=== PATIENT | female | born 1940 | race African-American/Black ===

== ENCOUNTER 2017-09-07 10:19 | Outpatient (CLI) | payer MEDICARE, MEDICAID ==
[2016-01-27 12:55] VITALS: BP 138/75
== END 2017-09-07 10:20 ==
LOC: LABRHC 10:19
PROVIDERS: ATTEND Physician Assistant
DX: R30.0 Dysuria (principal)
CPT/HCPCS: 87086; 87186

== ENCOUNTER 2018-07-01 22:29 | Emergency (ER) | payer MEDICARE, OTHER ==
[2018-07-01] MEDS ORDERED: diphenhydrAMINE HCL 50 MG/ML VIAL IVP ONE (22:45)
[2018-07-01] MEDS ORDERED: methylPREDNISolone SOD SUCC 125 MG/2 ML VIAL IVP ONE (22:45)
[2018-07-01] MEDS ORDERED: diphenhydrAMINE HCL 50 MG/ML VIAL ONE (22:47)
[2018-07-01] MEDS ORDERED: methylPREDNISolone SOD SUCC 125 MG/2 ML VIAL ONE (22:47)
[2018-07-01 22:57] LABS: BASOPHILS % 0.3 (0.0-1.5); EOSINOPHILS % 6.3 % (0.0-6.8); MEAN CORPUSCULAR HEMOGLOBIN 29.2 pg (28.0-34.0); MONOCYTES % 5.1 % (0.0-11.0); NEUTROPHILS # 3.4 # k/uL (1.4-7.7)
--- NOTE | 2018-07-01 23:01 | ED Physician Documentation ---
General Adult - HISTORIAN Historian: patient - HPI Stated Complaint: "Allergic Rxn" Chief Complaint: General Adult Onset: minutes Timing: still present Severity: moderate Further Comments: yes (Pt is a 77 yo female with sudden onset R-sided neck swelling, which she attributes to an allergic reaction. Pt had eaten some chicken salad just before the neck swelling occurred. Pt has had allergic reactions in the past but not to chicken salad, all of whose ingredients she has eaten in the past. Pt has not had difficulty swallowing or difficulty breathing apart from her usual COPD. Pt had been on continous O2 at one time, but improved and was able to discontinue it. Pt is wheezy on presentation, but not in any significant respiratory distress. Pt is on plavix.) - ROS CONST: no problems EYES/ENT: other (R-sided neck swelling) CVS/RESP: shortness of breath (chronic with COPD) GI/: none MS/SKIN/LYMPH: other (R-sided neck swelling) NEURO/PSYCH: headache - PAST HX Past History: other (HTN, PVD, Asthma/COPD, Anemia NOS, Anxiety, Chronic Low Back Pain, Sinusitis.) Surgeries/Procedures: other (L Total Hip Repacement 2004) Allergies/Adverse Reactions: Allergies Allergy/AdvReac Type Severity Reaction Status Date / Time promethazine HCl Allergy Unknown Verified 07/01/18 22:32 [From Phenergan] SEAN Inhibitors Allergy Verified 07/01/18 22:32 amlodipine besylate Allergy Verified 07/01/18 22:32 [From Norvasc] benazepril HCl [From Lotrel] Allergy Verified 07/01/18 22:32 fluticasone propionate Allergy Verified 07/01/18 22:32 [From Advair Diskus] metformin Allergy Verified 07/01/18 22:32 nifedipine [Nifedipine] Allergy Verified 07/01/18 22:32 NSAIDS (Non-Steroidal Allergy Verified 07/01/18 22:32 Anti-Inflamma Quinolones Allergy Unverified 07/01/18 22:32 salmeterol xinafoate Allergy Verified 07/01/18 22:32 [From Advair Diskus] Shellfish Allergy Verified 07/01/18 22:32 Sulfa (Sulfonamide Allergy Verified 07/01/18 22:32 Antibiotics) [Sulfa(Sulfonamide Antibiotics)] tramadol Allergy Verified 07/01/18 22:32 Home Medications: Ambulatory Orders Medication Instructions Recorded Albuterol Sulfate [Albuterol 2 puff INH QID PRN 03/11/13 Sulfate Hfa] Oxycodone HCl/Acetaminophen 1 tab PO Q6H PRN 03/11/13 [Endocet 5-325 Tablet] Clopidogrel Bisulfate [Clopidogrel] 75 mg PO DAILY 07/01/18 Hydrochlorothiazide 25 mg PO DAILY 07/01/18 Pnv No.95/Ferrous Fum/Folic AC 1 tab PO DAILY 07/01/18 [ Vitamins Tablet] Topiramate [Topamax] 50 mg PO BID 07/01/18 - SOCIAL HX Smoking History: quit greater than 1 year - FAMILY HX Family History: Yes (Colon Cancer) - VITAL SIGNS Vital Signs: Vital Signs Temp Pulse Resp BP Pulse Ox 97.1 F L 95 H 24 169/88 96 07/01/18 22:30 07/01/18 22:30 07/01/18 22:30 07/01/18 22:30 07/01/18 22:30 - REVIEWED ASSESSMENTS Nursing Assessment Reviewed: Yes Vitals Reviewed: Yes Progress - Progress Progress: CT soft Tissues Neck: No intracranial abnormality is seen. The orbits are unremarkable. The nasopharynx and oropharynx and hypopharynx are normal. The left parotid gland is normal. The right is enlarged and surrounded by inflammatory change. There is thickening of the right platysma muscle. Streak artifact from dental amalgam partially obscured the oral cavity. The carotid arteries are calcified and tor tuous. Cannot rule out of significant carotid artery stenosis. The thyroid gland is within normal limits. Motion artifact of the larynx. Cervical spondylosis is present. There is aortic and great vessel calcification. Emphysematous changes affect the lungs with tree in bud infiltrates in the right upper lobe and a right upper lobe pulmonary nodule suspicious for neoplasm measuring 2.2 cm. IMPRESSION: Inflammation of the right parotid gland with inflammatory changes extending into the adjacent soft tissues. 2.2 cm right upper lobe pulmonary nodule highly suspicious for lung cancer. Emphysematous changes in lungs with bronchiolitis also in the right upper lobe. Aortic great vessel and carotid artery calcification. Cannot rule out significant carotid artery stenosis. Motion artifact. Solu-medrol 125 mg IV Benadryl 25 mg IV Duoneb HFN Hydralazine 10 mg for htn BP 184/68 --> 155/75 Mumps Labs IgM & IgG - pending ? if neck swelling came on rapidly as pt thought, or whether she did not immediately notice swelling that came on more gradually. D/c instructions: Rx Azithromycin 250 mg. Take one by mouth once daily for 5 days. 1st dose in ER. Rx Levaquin 500 mg. Take by mouth once daily for 10 days. 1st dose in ER. Rx Medrol Dose Pack. Start 24 mg by mouth on day 1; decrease by 4 mg each day over 5 days. Follow up with Order Department Supervisor as soon as possible about bronchiolitis, right upper lobe infiltrates, and 2.2 cm pulmonary nodule. Follow up with primary provider about Parotitis, results of Mumps testing, and possible carotid artery stenosis. ED Results Lab/Radiology - Orders Orders: ED Orders Category Date Time Status Place IV Lock 1T Care 07/01/18 22:44 Ordered CBC/PLATELET/DIFF Routine Lab 07/01/18 Ordered CMP Routine Lab 07/01/18 Ordered diphenhydrAMINE HCL [Benadryl] Med 07/01/18 22:45 Once 25 mg IVP NOW ONE diphenhydrAMINE HCL [Benadryl] Med 07/01/18 22:47 Discontinued 50 mg .ROUTE .STK-MED ONE methylPREDNISolone SOD SUCC [Solu-MEDROL] Med 07/01/18 22:47 Discontinued 125 mg .ROUTE .STK-MED ONE methylPREDNISolone SOD SUCC [Solu-MEDROL] Med 07/01/18 22:45 Once 125 mg IVP NOW ONE General Adult Physical Exam - PHYSICAL EXAM GENERAL APPEARANCE: moderate distress (anxious) EENT: eye inspection normal, pharynx normal, other (nearly tennis-ball size mass, R side of neck at angle of the jaw.) NECK: supple, other (nearly tennis-ball size mass, R side of neck at angle of the jaw.). No: carotid bruit RESPIRATORY: wheezes CVS: reg rate & rhythm, heart sounds normal ABDOMEN: soft, no organomegaly, normal bowel sounds SKIN: warm/dry, normal color EXTREMITIES: non-tender, normal range of motion, no evidence of injury NEURO: oriented X3, motor nml, sensation nml Discharge Clincal Impression: Parotitis, acute, RUL infiltrate, possible R carotid artery stenosis, emphysema, 2.2 cm pulmonary nodule, RUL Referrals: Primary Doctor,No [REFERRING] - Condition: Stable Decision to Admit: NO Decision Time: 01:25
[2018-07-01 23:06] LABS: eGFR (African) > 60; eGFR (Non-African) > 60
[2018-07-02] MEDS ORDERED: AZITHROMYCIN 250 MG TABLET PO ONE ×2 (00:49)
[2018-07-02] MEDS ORDERED: IPRATROPIUM/ALBUTEROL SULFATE 3 ML AMPUL.NEB NEB ONE ×2 (00:49)
[2018-07-02] MEDS ORDERED: hydrALAZINE HCL 20 MG/1 ML ONE (00:56)
[2018-07-02] MEDS ORDERED: LEVOFLOXACIN 500 MG TABLET PO ONE (01:15)
[2018-07-02] MEDS ORDERED: LEVOFLOXACIN 500 MG TABLET ONE (01:15)
[2018-07-02 01:32] VITALS: BP 156/75
--- NOTE | 2018-07-02 05:57 | Diagnostic Imaging Report ---
BRITTANY SIMMONS [facility] [address] [address] Report Submission Date: Jul 02, 2018 12:02:46 AM CDT Patient Study Name: ANDREA PISANO Date: Jul 01, 2018 11:36:47 PM CDT Modality Type: CT\SR Gender: F Description: CT NECK SOFT TISSUE W/ : 44 Institution: [facility] Physician: BRITTANY SIMMONS CT soft tissue neck with contrast Date of study: July 01, 2018 CLINICAL HISTORY: SUDDEN ONSET, RT SIDED NECK SWELLING (Hx) / ITS.REASON sudden onset, R-sided neck swelling Note time : 07/02/2018 12:51:59 AM User : Srikanth Caicedo RT SIDED NECK SWELLING (DICOM Hx) TECHNIQUE: 3 mm contiguous axial images of the soft tissues of the neck with contrast. Sagittal and coronal reconstructions. FINDINGS: No intracranial abnormality is seen. The orbits are unremarkable. The nasopharynx and oropharynx and hypopharynx are normal. The left parotid gland is normal. The right is enlarged and surrounded by inflammatory change. There is thickening of the right platysma muscle. Streak artifact from dental amalgam partially obscured the oral cavity. The carotid arteries are calcified and tortuous. Cannot rule out of significant carotid artery stenosis. The thyroid gland within normal limits. Motion artifact of the larynx. Cervical spondylosis is present. There is aortic and great vessel calcification. Emphysematous changes affect the lungs with tree in bud infiltrates in the right upper lobe and a right upper lobe pulmonary nodule suspicious for neoplasm measuring 2.2 cm IMPRESSION: Inflammation of the right parotid gland with inflammatory changes extending into the adjacent soft tissues 2.2 cm right upper lobe pulmonary nodule highly suspicious for lung cancer Emphysematous changes in lungs with bronchiolitis also in the right upper lobe. Aortic great vessel and carotid artery calcification. Cannot rule out significant carotid artery stenosis. Motion artifact Electronically signed on Jul 02, 2018 12:02:46 AM CDT by: Humble PHILLIPS
== END 2018-07-02 01:28 ==
LOC: ED 22:29
DX: J43.9 Emphysema, unspecified (principal); R91.1 Solitary pulmonary nodule; R91.8 Other nonspecific abnormal finding of lung field; K11.20 Sialoadenitis, unspecified
CPT/HCPCS: 70491; 80053; 85025; 86735; J0360; J1200; J2930; 94640; 96372; 96374; 96375; 99284; Q9967; S1016

== ENCOUNTER 2018-07-02 15:12 | Outpatient (CLI) | payer MEDICARE, MEDICAID ==
[2018-07-02 01:32] VITALS: BP 156/75
--- NOTE | 2018-07-02 17:38 | Diagnostic Imaging Report ---
JAXON WILKERSON [facility] [address] [address] Report Submission Date: Jul 02, 2018 4:57:10 PM CDT Patient Study Name: ANDREA PISANO Date: Jul 02, 2018 3:28:29 PM CDT Modality Type: US Gender: F Description: CAROTID US : 44 Institution: [facility] Physician: JAXON WILKERSON Examination: Carotid artery ultrasound History: Abnormal ct scan velocities appear normal. antegrade flow in the vertebrals (Hx) the wall of the Comparison exams: CT neck soft tissue dated 01 July 2018 Findings: Right carotid: Common carotid artery peak systolic velocity 71.4 cm/s; end diastolic velocity 18.6 cm/s. Internal carotid artery peak systolic velocity 64.3 cm/s; end diastolic velocity 29.6 cm/s. External carotid artery velocity to 83.5 cm/s. Vertebral artery velocity 57.8 cm/s Vertebral flow antegrade. Normal waveforms. No occlusive plaquing. Left carotid: Common carotid artery peak systolic velocity 97.7 cm/s; end diastolic velocity 30.3 cm/s. Internal carotid artery peak systolic velocity 122.7 cm/s; end diastolic velocity 49.4 cm/s. External carotid artery velocity to 96.1 cm/s. Vertebral artery velocity 82.5 cm/s Vertebral flow antegrade. Normal waveforms. No occlusive plaquing. Right ICA/CCA Ratio: 0.9; Left ICA/CCA Ratio 1.25 Impression: Carotids ratios not elevated. No restriction to hemodynamic flow. Electronically signed on Jul 02, 2018 4:57:10 PM CDT by: Greg PHILLIPS
== END 2018-07-02 15:13 ==
LOC: RAD 15:12
PROVIDERS: ATTEND Physician Assistant
DX: I65.21 Occlusion and stenosis of right carotid artery (principal)
CPT/HCPCS: 93880

== ENCOUNTER 2019-02-19 10:20 | Outpatient (CLI) | payer MEDICARE, MEDICAID ==
[2019-02-19 10:41] LABS: MEAN CORPUSCULAR HEMOGLOBIN 30.1 pg (28.0-34.0)
== END 2019-02-19 10:24 ==
LOC: LAB 10:20
PROVIDERS: ATTEND Family Medicine
DX: T14.8XXA Other injury of unspecified body region, initial encounter (principal)
CPT/HCPCS: 36415; 85027

== ENCOUNTER 2019-03-21 10:52 | Inpatient (IN) | payer MEDICARE, OTHER ==
[2019-03-21] MEDS ORDERED: IPRATROPIUM/ALBUTEROL SULFATE 3 ML AMPUL.NEB NEB ONE ×2 (10:55→12:18)
[2019-03-21 11:26] LABS: BASOPHILS % 0.3 % (0.0-1.5)
--- NOTE | 2019-03-21 11:34 | ED Physician Documentation ---
Dyspnea - HISTORIAN Historian: patient - HPI Stated Complaint: SOA Chief Complaint: Dyspnea Additional Information: Patient presents to ED with increasing shortness of breath, cough and yellow/green sputum production since Sunday. Patient has a history of COPD and used to be on home oxygen but was weaned off of it after she stopped smoking several years ago. She presented to ED with oxygen saturation of 84% on room air. She denies fever. Onset: days ago (3) Duration: continues in ED Severity: moderate Exacerbated By: coughing Associated Symptoms: productive cough. denies: chills, fever - ROS CONST: no problems EYES/ENT: none GI/: none NEURO/PSYCH: denies: headache MS/SKIN/LYMPH: none - PAST HX Lung Disease: COPD Cardiac Disease: none PE Risk Factors: none Surgeries/Procedures: none Other History: none Allergies/Adverse Reactions: Allergies Allergy/AdvReac Type Severity Reaction Status Date / Time promethazine HCl Allergy Unknown Verified 03/21/19 11:08 [From Phenergan] SEAN Inhibitors Allergy Verified 03/21/19 11:08 amlodipine besylate Allergy Verified 03/21/19 11:08 [From Norvasc] benazepril HCl [From Lotrel] Allergy Verified 03/21/19 11:08 fluticasone propionate Allergy Verified 03/21/19 11:08 [From Advair Diskus] metformin Allergy Verified 03/21/19 11:08 nifedipine [Nifedipine] Allergy Verified 03/21/19 11:08 NSAIDS (Non-Steroidal Allergy Verified 03/21/19 11:08 Anti-Inflamma Quinolones Allergy Verified 03/21/19 11:08 salmeterol xinafoate Allergy Verified 03/21/19 11:08 [From Advair Diskus] Shellfish Allergy Verified 03/21/19 11:08 Sulfa (Sulfonamide Allergy Verified 03/21/19 11:08 Antibiotics) [Sulfa(Sulfonamide Antibiotics)] tramadol Allergy Verified 03/21/19 11:08 Home Medications: Ambulatory Orders Medication Instructions Recorded Albuterol Sulfate [Albuterol 2 puff INH QID PRN 03/11/13 Sulfate Hfa] Oxycodone HCl/Acetaminophen 1 tab PO Q6H PRN 03/11/13 [Endocet 5-325 Tablet] Budesonide/Formoterol Fumarate 10.2 gm IH BID 07/02/18 [Symbicort 160-4.5 Mcg Inhaler] Cholecalciferol (Vitamin D3) 1,000 unit PO DAILY av 07/02/18 [Vitamin D3] Omeprazole 40 mg PO BID 07/02/18 - SOCIAL HX Smoking History: non-smoker, quit greater than 1 year Alcohol Use: none Drug Use: none - FAMILY HX Family History: none - VITAL SIGNS Vital Signs: Vital Signs Temp Pulse Resp BP Pulse Ox 37.0 F L 113 H 26 H 174/94 88 L 03/21/19 10:59 03/21/19 10:59 03/21/19 10:59 03/21/19 10:59 03/21/19 10:59 - REVIEWED ASSESSMENTS Nursing Assessment Reviewed: Yes Vitals Reviewed: Yes Progress - Progress Progress: 1250 Oxygen turned off 1257 Patient more short of breath with oxygen saturation of 88% ED Results Lab/Radiology - Lab Results Lab Results: Lab Results 03/21/19 11:15 WBC 10.00 K/ul K/ul (4.00-12.00) RBC 3.59 M/ul L M/ul (3.90-5.20) Hgb 10.8 g/dL L g/dL (11.5-16.0) Hct 32.5 % L % (34.5-46.5) MCV 90.0 fl fl (80.0-100.0) MCH 30.2 pg pg (28.0-34.0) MCHC 33.4 g/dL g/dL (30.0-36.0) RDW 14.8 % H % (11.3-14.3) Plt Count 213 K/mm3 K/mm3 (130-400) Neut % (Auto) 70.0 % % (39.0-79.0) Lymph % (Auto) 20.4 % % (16.0-50.0) [place] % (Auto) 7.3 % % (0.0-11.0) Eos % (Auto) 2.0 % % (0.0-6.8) Baso % (Auto) 0.3 % % (0.0-1.5) Neut # (Auto) 7.0 # k/uL # k/uL (1.4-7.7) Lymph # (Auto) 2.0 # k/uL # k/uL (0.6-4.0) [place] # (Auto) 0.7 # k/uL # k/uL (0.0-0.9) Eos # (Auto) 0.2 # k/uL # k/uL (0.0-0.6) Baso # (Auto) 0.0 # k/uL # k/uL (0.0-0.5) - Radiology Radiology Impressions: Report Submission Date: March 21, 2019 11:50:14 AM CDT Patient Study Name: ANDREA PISANO Date: March 21, 2019 11:30:26 AM CDT Modality Type: DX Gender: F Description: CHEST 2VIEW : 44 Institution: [facility] Physician: KIKI STINSON Examination: PA and lateral chest. History: Evaluate lung le. SOA X 1 WEEK; WEAKNESS; PT STATES HX OF PNEUMONIA Comparison exam: None provided. Findings: PA and lateral views of the chest demonstrates a normal cardiac and mediastinal silhouette. 1.5 cm density right upper lung. No focal infiltrate. No blunting of the costophrenic margins. Osseous structures are appropriate for age. Impression: No acute pulmonary process. 1.5 cm right upper lung parenchymal density - correlation with any previous examinations highly recommended. If non available, non emergent CT chest would be appropriate to further evaluate. Electronically signed on March 21, 2019 11:50:14 AM CDT by: Greg Lee - Orders Orders: ED Orders Category Date Time Status CHEST 2VIEW [RAD] Stat Exams 03/21/19 Ordered CBC/PLATELET/DIFF Routine Lab 03/21/19 11:15 Completed CMP Routine Lab 03/21/19 11:15 Received TROPONIN I Stat Lab 03/21/19 11:15 Received Ipratropium/Albuterol Sulfate [Duoneb] Med 03/21/19 10:55 Discontinued 3 ml NEB NOW ONE Dyspnea Physical Exam - EXAM General Appearance: moderate distress EENT: SHERRY Neck: No: lymphadenopathy Respiratory: respiratory distress, prolonged expirations, accessory muscle use, decreased air movement, wheezes. No: speaks full sentences CVS: reg. rate & rhythm, no murmur Abdomen: non-tender, no distention. No: tenderness Skin: color nml Extremities: non-tender, no edema Neuro/Psych: oriented x3, motor nml, mood/affect nml Discharge Clincal Impression: COPD with acute exacerbation, Acute respiratory failure with hypoxia Referrals: Apryl Wallace MD [Primary Care Provider] - 2 Days Comments: [address] Wallace for admission, she agrees. Patient will be admitted as acute under Dr. Wallace. Condition: Stable Disposition: ADMITTED INPATIENT Decision to Admit: [id number] Date of Decison to Admit: 03/21/19 Decision Time: 12:59
[2019-03-21 11:52] LABS: eGFR (Non-African) > 60
[2019-03-21] MEDS ORDERED: diphenhydrAMINE HCL 25 MG TABLET PO ONE (11:52)
[2019-03-21] MEDS ORDERED: MONTELUKAST SODIUM 10 MG TABLET PO ONE (11:53)
[2019-03-21] MEDS ORDERED: AZITHROMYCIN 250 MG TABLET PO ONE (11:57)
[2019-03-21] MEDS ORDERED: methylPREDNISolone SOD SUCC 125 MG/2 ML VIAL IM ONE (12:18)
[2019-03-21 14:04] VITALS: BMI 36.6
--- NOTE | 2019-03-21 14:59 | History and Physical Report ---
History of Present Illnes - History of Present Illness Reason for Visit: SOB History of Present Illness: Patient with COPD presented to the ER with SOB today. For the past 5 days she has felt SOB with a cough productive of yellow/green sputum. She had a h/o home O2 use but able to wean off after she quit smoking years ago. In the ER she was found to have RA SAT 84%. She was given duoneb and solumedrol IM and began to feel improvement. She will be admitted Acute. - Past Medical History Cardiac: HTN Pulmonary: Asthma, COPD Gastrointestinal: GERD Heme/Onc: Iron deficiency anemia Psych: Anxiety Musculoskeletal: Osteoarthritis Rheumatologic: Fibromyalgia ENT: Allergic rhinitis - Past Surgical History Past Surgical History: Hernia Repair, Tubal Ligation - Past Family History Mother Family History: Cancer (colon - 76 y.o.), Father Family History: (Stabbed at 36 y.o.) Brother 1 Family History: Other (seizures) - Past Social History Smoke: Quit (2004) Alcohol: None Drugs: None Lives: With Family Domestic Violence: Negative - Health Maintenance Health Maintenance: Mammogram, Colonoscopy (2017). denies: Cholesterol, Pap Smear Influenza Vaccine: Current for this Influenza Season Pneumonia Vaccine: No Resuscitation Status: full; no prolonged resuscitation Review of Systems - Review of Systems Constitutional: negative: Fever, Weakness Eyes: negative: pain ENT: Nose Discharge. negative: Throat Pain Respiratory: Cough, Shortness of Breath Cardiovascular: negative: Chest Pain Gastrointestinal: negative: Nausea, Vomiting, Abdominal Pain Genitourinary: negative: Dysuria Musculoskeletal: negative: Neck Pain Skin: negative: Rash Neurological: negative: Weakness - Medications/Allergies Allergies/Adverse Reactions: Allergies Allergy/AdvReac Type Severity Reaction Status Date / Time promethazine HCl Allergy Unknown Verified 03/21/19 11:08 [From Phenergan] SEAN Inhibitors Allergy Verified 03/21/19 11:08 amlodipine besylate Allergy Verified 03/21/19 11:08 [From Norvasc] benazepril HCl [From Lotrel] Allergy Verified 03/21/19 11:08 fluticasone propionate Allergy Verified 03/21/19 11:08 [From Advair Diskus] metformin Allergy Verified 03/21/19 11:08 nifedipine [Nifedipine] Allergy Verified 03/21/19 11:08 NSAIDS (Non-Steroidal Allergy Verified 03/21/19 11:08 Anti-Inflamma Quinolones Allergy Verified 03/21/19 11:08 salmeterol xinafoate Allergy Verified 03/21/19 11:08 [From Advair Diskus] Shellfish Allergy Verified 03/21/19 11:08 Sulfa (Sulfonamide Allergy Verified 03/21/19 11:08 Antibiotics) [Sulfa(Sulfonamide Antibiotics)] tramadol Allergy Verified 03/21/19 11:08 Exam - Exam Vital Signs: Vital Signs (72 hours) 03/21/19 03/21/19 03/21/19 10:59 13:13 13:37 Temperature 37.0 F L 97.6 F 98.2 F Pulse Rate [ 105 H Left] Pulse Rate [ 113 H 93 H Pulse ox] Respiratory 26 H 20 21 Rate Blood Pressure 174/94 164/85 122/98 [Left Arm] O2 Sat by Pulse 88 L 99 94 Oximetry 03/21/19 13:58 Temperature 97.6 F Pulse Rate [ 105 H Left] Pulse Rate [ Pulse ox] Respiratory 20 Rate Blood Pressure 164/85 [Left Arm] O2 Sat by Pulse 99 Oximetry General: Alert, Oriented to Person, Oriented to Place, Oriented to Time, Cooperative, No acute distress HEENT: Atraumatic, PERRLA, EOMI, Mouth Mucous membr. moist/[place] Neck: Normal Range of Motion Lungs: Rhonchi, Decreased Air Movement Cardiovascular: Regular rate Abdomen: Normal bowel sounds, Soft, No tenderness Integumentary: Normal Extremities: No edema Neurological: Normal gait, Normal speech, Strength Equal Bilat, Normal tone Psych/Mental Status: Mental status NL, Mood NL, Appropriate Affect, Intact Judgment - Laboratory Results Laboratory Results: Laboratory Results 03/21/19 03/21/19 03/21/19 11:15 11:15 11:15 WBC 10.00 RBC 3.59 L Hgb 10.8 L Hct 32.5 L MCV 90.0 MCH 30.2 MCHC 33.4 RDW 14.8 H Plt Count 213 Neut % (Auto) 70.0 Lymph % (Auto) 20.4 [place] % (Auto) 7.3 Eos % (Auto) 2.0 Baso % (Auto) 0.3 Neut # (Auto) 7.0 Lymph # (Auto) 2.0 [place] # (Auto) 0.7 Eos # (Auto) 0.2 Baso # (Auto) 0.0 Sodium 137 Potassium 3.5 Chloride 102 Carbon Dioxide 33 H BUN 18 H Creatinine 0.97 Estimated Creat Clear 85 Est GFR ( Amer) > 60 Est GFR (Non-Af Amer) > 60 Glucose 107 H Calcium 9.3 Total Bilirubin 0.5 AST 21 ALT 17 Alkaline Phosphatase 70 Troponin I < 0.012 L Total Protein 7.1 Albumin 3.8 Assessment/Plan - Assessment/Plan (1) HTN (hypertension) Status: Chronic Current Visit: No Qualifiers: Hypertension type: essential hypertension Qualified Code(s): I10 - Essential (primary) hypertension (2) Anxiety Status: Chronic Current Visit: No (3) GERD (gastroesophageal reflux disease) Status: Chronic Current Visit: No (4) Hypoxia Status: Acute Current Visit: Yes (5) COPD with acute exacerbation Status: Acute Current Visit: Yes Plan: Patient will be admitted to Acute Care. STaff has had difficulty placing IV. Patient now refuses to have IV attempts anymore. She understands she may if in a hospital without an IV but is willing to take that risk. Will do Steroid IM. Duonebs. Zithromax. O2 to keep SATS > 90%. VTE Assessment - RISK FACTOR SCORE VTE RISK FACTOR SCORES: AGE OVER 60 YEARS, ACUTE INFECTION OTHER THEN SEPSIS - RISK VTE MODERATE RISK: SCORE OF 2 (RISK PROXIMAL DVT 2-4%) PROPHYAXIS NEEDED
[2019-03-21] MEDS ORDERED: oxyCODONE/ACETAMINOPHEN 5/325 TABLET PO PRN (15:08)
[2019-03-21] MEDS: oxyCODONE/ACETAMINOPHEN 5/325 TABLET PO PRN (16:32)
[2019-03-21] MEDS: IPRATROPIUM/ALBUTEROL SULFATE 3 ML AMPUL.NEB NEB SCH (19:36)
[2019-03-21] MEDS: PANTOPRAZOLE SODIUM 40 MG TABLET.DR PO SCH (19:36)
[2019-03-21] MEDS ORDERED: 0.9 % SODIUM CHLORIDE 1,000 ML IV ONE (19:52)
[2019-03-21] MEDS ORDERED: methylPREDNISolone SOD SUCC 40 MG/ML VIAL ONE (19:58)
[2019-03-21] MEDS ORDERED: methylPREDNISolone SOD SUCC 125 MG/2 ML VIAL IM SCH (21:00)
[2019-03-21] MEDS: 0.9 % SODIUM CHLORIDE 1,000 ML IV SCH (21:21)
[2019-03-21] MEDS: methylPREDNISolone SOD SUCC 40 MG/ML VIAL IVP SCH (21:23)
--- NOTE | 2019-03-21 22:05 | Diagnostic Imaging Report ---
KIKI STINSON [facility] [address] [facility] [address] [place], [place]. [address] Report Submission Date: March 21, 2019 11:50:14 AM CDT Patient Study Name: ANDREA PISANO Date: March 21, 2019 11:30:26 AM CDT Modality Type: DX Gender: F Description: CHEST 2VIEW : 44 Institution: [facility] Physician: KIKI STINSON Examination: PA and lateral chest. History: Evaluate lung le. SOA X 1 WEEK; WEAKNESS; PT STATES HX OF PNEUMONIA Comparison exam: None provided. Findings: PA and lateral views of the chest demonstrates a normal cardiac and mediastinal silhouette. 1.5 cm density right upper lung. No focal infiltrate. No blunting of the costophrenic margins. Osseous structures are appropriate for age. Impression: No acute pulmonary process. 1.5 cm right upper lung parenchymal density - correlation with any previous examinations highly recommended. If non available, non emergent CT chest would be appropriate to further evaluate. Electronically signed on March 21, 2019 11:50:14 AM CDT by: Greg PHILLIPS
--- NOTE | 2019-03-21 22:11 | Diagnostic Imaging Report ---
[facility] [address] [facility] [address] [place], [place]. [address] Report Submission Date: March 21, 2019 6:09:20 PM CDT Patient Study Name: ANDREA PISANO Date: March 21, 2019 4:03:43 PM CDT Modality Type: CT\SR Gender: F Description: CT CHEST W/O CONTRAST : 44 Institution: [facility] Physician: [facility]/MED SURG CT chest non contrast Date of study: March 21, 2019 Comparison: Chest radiograph same date CLINICAL HISTORY: CT CHEST W/O, LUNG MASS SEEN ON CXR TODAY, PT STATES SHE HAS A HX OF PNEUMONIA SCARRING. UNABLE TO ESTABLISH IV ACCESS (Hx) / ITS.REASON lung mass on cxr Note time : 03/21/2019 4:28:44 PM User : Sofía Feroz CT CHEST W/O, LUNG MASS SEEN ON CXR TODAY, PT STATES SHE HAS A HX OF PNEUMONIA SCARRING. UNABLE TO ESTABLISH IV ACCESS (DICOM Hx) TECHNIQUE: 5 mm contiguous axial images of the chest. FINDINGS: There is no hilar or mediastinal mass. Aortic and great vessel calcification is present. Coronary artery calcification. Calcified subcarinal lymph nodes are present. There is aortic root and mitral annulus calcification. The pulmonary arteries dilated 3.3 cm. The upper abdomen shows no acute pathology. Aortic calcification is present. The gallbladder is not identified Lung windows show pleural based right upper lobe nodule with a peripheral calcification. This nodule measures centimeters. Centrilobular emphysema changes are present. Groundglass infiltrate the right lung apex. Some minimal groundglass infiltrate is present in the right lower lobe. There is thoracic spondylosis. IMPRESSION: 2 cm peripheral nodule in the right upper lobe peripheral calcification. This is a neoplastic nodule until proven otherwise. Consider PET CT or biopsy Centrilobular emphysema. Right apical ill defined groundglass infiltrate. Minimal pleural based infiltrates in the right lung base Multifocal vascular calcification. Dilated pulmonary artery possible pulmonary hypertension Electronically signed on March 21, 2019 6:09:20 PM CDT by: Humble PHILLIPS
[2019-03-22] MEDS: ACETAMINOPHEN 500 MG TABLET PO PRN (00:18)
[2019-03-22] MEDS: diphenhydrAMINE HCL 25 MG TABLET PO PRN (00:19)
[2019-03-22] MEDS: IPRATROPIUM/ALBUTEROL SULFATE 3 ML AMPUL.NEB NEB SCH ×5 (00:33→23:19)
[2019-03-22] MEDS: oxyCODONE/ACETAMINOPHEN 5/325 TABLET PO PRN ×3 (02:40→22:06)
[2019-03-22] MEDS: methylPREDNISolone SOD SUCC 40 MG/ML VIAL IVP SCH ×3 (05:23→22:07)
[2019-03-22 05:37] LABS: BASOPHILS % 0.2 % (0.0-1.5); NEUTROPHILS # 6.9 # k/uL (1.4-7.7)
[2019-03-22] MEDS: PANTOPRAZOLE SODIUM 40 MG TABLET.DR PO SCH ×2 (05:50→17:14)
--- NOTE | 2019-03-22 08:14 | Inpatient Progress Note ---
Subjective - Required Recertification Statement I anticipate X number of days because-include discharge plan: 3 - Review of Systems Subjective: Patient feels a little better but still SOB when she gets up to use the bathroom. Complains of muscle cramps. Objective - Exam Vitals and I&O: Vital Signs Temp 97.5 F L 03/22/19 07:42 Pulse 88 03/22/19 07:42 Resp 14 03/22/19 07:42 BP 146/74 03/22/19 07:42 Pulse Ox 98 03/22/19 07:42 Intake & Output 03/21/19 03/21/19 03/22/19 11:59 23:59 11:59 Intake Total 480 1060 Balance 480 1060 Weight 93.44 kg 90.718 kg Intake: IV 960 Left Wrist 960 Oral 480 100 Other: Voiding Method Toilet Toilet # Voids 2 # Bowel Movements 0 General: Alert, Oriented to Person, Oriented to Place, Oriented to Time, Cooperative, Mild distress Lungs: Wheezes, Rhonchi Cardiovascular: Regular rate - Results Results: Laboratory Results WBC 8.10 K/ul (4.00-12.00) 03/22/19 05:25 RBC 3.15 M/ul (3.90-5.20) L 03/22/19 05:25 Hgb 9.5 g/dL (11.5-16.0) L 03/22/19 05:25 Hct 28.3 % (34.5-46.5) L 03/22/19 05:25 MCV 90.0 fl (80.0-100.0) 03/22/19 05:25 MCH 30.2 pg (28.0-34.0) 03/22/19 05:25 MCHC 33.7 g/dL (30.0-36.0) 03/22/19 05:25 RDW 15.1 % (11.3-14.3) H 03/22/19 05:25 Plt Count 321 K/mm3 (130-400) 03/22/19 05:25 Neut % (Auto) 85.4 % (39.0-79.0) H 03/22/19 05:25 Lymph % (Auto) 9.6 % (16.0-50.0) L 03/22/19 05:25 [place] % (Auto) 4.1 % (0.0-11.0) 03/22/19 05:25 Eos % (Auto) 0.7 % (0.0-6.8) 03/22/19 05:25 Baso % (Auto) 0.2 % (0.0-1.5) 03/22/19 05:25 Neut # (Auto) 6.9 # k/uL (1.4-7.7) 03/22/19 05:25 Lymph # (Auto) 0.8 # k/uL (0.6-4.0) 03/22/19 05:25 [place] # (Auto) 0.3 # k/uL (0.0-0.9) 03/22/19 05:25 Eos # (Auto) 0.1 # k/uL (0.0-0.6) 03/22/19 05:25 Baso # (Auto) 0.0 # k/uL (0.0-0.5) 03/22/19 05:25 Sodium 137 mmol/L (137-145) 03/21/19 11:15 Potassium 3.5 mmol/L (3.5-5.1) 03/21/19 11:15 Chloride 102 mmol/L (98-107) 03/21/19 11:15 Carbon Dioxide 33 mmol/L (22-30) H 03/21/19 11:15 BUN 18 mg/dL (7-17) H 03/21/19 11:15 Creatinine 0.97 mg/dL (0.52-1.04) 03/21/19 11:15 Estimated Creat Clear 85 03/21/19 11:15 Est GFR ( Amer) > 60 (60-) 03/21/19 11:15 Est GFR (Non-Af Amer) > 60 (60-) 03/21/19 11:15 Glucose 107 mg/dL (74-106) H 03/21/19 11:15 Calcium 9.3 mg/dL (8.4-10.2) 03/21/19 11:15 Total Bilirubin 0.5 mg/dL (0.2-1.3) 03/21/19 11:15 AST 21 U/L (15-46) 03/21/19 11:15 ALT 17 U/L (0-35) 03/21/19 11:15 Alkaline Phosphatase 70 U/L (38-126) 03/21/19 11:15 Troponin I < 0.012 ng/mL (0.012-0.034) L 03/21/19 11:15 Total Protein 7.1 g/dL (6.3-8.2) 03/21/19 11:15 Albumin 3.8 g/dL (3.5-5.0) 03/21/19 11:15 Assessment/Plan - Assessment/Plan (1) HTN (hypertension) Status: Chronic Current Visit: No Qualifiers: Hypertension type: essential hypertension Qualified Code(s): I10 - Essential (primary) hypertension (2) Anxiety Status: Chronic Current Visit: No (3) GERD (gastroesophageal reflux disease) Status: Chronic Current Visit: No (4) Hypoxia Status: Acute Current Visit: Yes (5) COPD with acute exacerbation Status: Acute Current Visit: Yes Plan: IV established - change steroids to IV. Continue duonebs, O2, and steroids. Zithromax.
[2019-03-22] MEDS ORDERED: 0.9 % SODIUM CHLORIDE 1,000 ML IV ONE (08:19)
[2019-03-22] MEDS: 0.9 % SODIUM CHLORIDE 1,000 ML IV SCH (08:23)
[2019-03-22] MEDS: CLOPIDOGREL BISULFATE 75 MG TABLET PO SCH (09:24)
[2019-03-22] MEDS: LORATADINE 10 MG TABLET PO SCH (09:25)
[2019-03-22] MEDS: hydroCHLOROthiazide 25 MG TABLET PO SCH (09:25)
[2019-03-22] MEDS: AZITHROMYCIN 250 MG TABLET PO SCH (09:26)
[2019-03-22] MEDS: ENOXAPARIN SODIUM 40 MG/0.4 ML DISP.SYRIN SQ SCH (09:30)
[2019-03-22] MEDS ORDERED: LORazepam 0.5 MG TABLET ONE ×2 (15:32→21:58)
[2019-03-22] MEDS: LORazepam 0.5 MG TABLET PO PRN ×2 (15:57→22:06)
[2019-03-22] MEDS ORDERED: methylPREDNISolone SOD SUCC 125 MG/2 ML VIAL ONE (21:57)
[2019-03-22] MEDS: guaiFENesin 600 MG TAB.ER.12H PO SCH (22:06)
[2019-03-23] MEDS ORDERED: ACETAMINOPHEN 325 MG TABLET ONE (00:46)
[2019-03-23] MEDS: diphenhydrAMINE HCL 25 MG TABLET PO PRN (00:51)
[2019-03-23] MEDS: ACETAMINOPHEN 500 MG TABLET PO PRN (00:53)
[2019-03-23] MEDS ORDERED: LORazepam 0.5 MG TABLET ONE (05:07)
[2019-03-23] MEDS: oxyCODONE/ACETAMINOPHEN 5/325 TABLET PO PRN ×2 (05:12→19:20)
[2019-03-23] MEDS: LORazepam 0.5 MG TABLET PO PRN (05:13)
[2019-03-23] MEDS: PANTOPRAZOLE SODIUM 40 MG TABLET.DR PO SCH ×2 (05:13→16:55)
[2019-03-23] MEDS: methylPREDNISolone SOD SUCC 40 MG/ML VIAL IVP SCH ×3 (05:13→21:57)
[2019-03-23] MEDS: IPRATROPIUM/ALBUTEROL SULFATE 3 ML AMPUL.NEB NEB SCH ×4 (05:14→22:59)
[2019-03-23] MEDS: ENOXAPARIN SODIUM 40 MG/0.4 ML DISP.SYRIN SQ SCH (08:28)
[2019-03-23] MEDS: CLOPIDOGREL BISULFATE 75 MG TABLET PO SCH (08:28)
[2019-03-23] MEDS: guaiFENesin 600 MG TAB.ER.12H PO SCH ×2 (08:28→21:57)
[2019-03-23] MEDS: LORATADINE 10 MG TABLET PO SCH (08:28)
[2019-03-23] MEDS: hydroCHLOROthiazide 25 MG TABLET PO SCH (08:28)
[2019-03-23] MEDS: AZITHROMYCIN 250 MG TABLET PO SCH (08:29)
[2019-03-23] MEDS ORDERED: diazePAM 5 MG TABLET PO PRN (08:53)
--- NOTE | 2019-03-23 08:57 | Inpatient Progress Note ---
Subjective - Required Recertification Statement I anticipate X number of days because-include discharge plan: 4 - Review of Systems Subjective: Patient very teary this morning. She is afraid she will have to be on O2 at home. She has been off it for 2 years. Still having spasms. Cyclobenzaprine no help. Still gets SOB when up to bathroom. Objective - Exam Vitals and I&O: Vital Signs Temp 97.7 F 03/23/19 08:20 Pulse 107 H 03/23/19 08:20 Resp 20 03/23/19 08:20 BP 143/94 03/23/19 08:20 Pulse Ox 96 03/23/19 08:20 Intake & Output 03/22/19 03/22/19 03/23/19 11:59 23:59 11:59 Intake Total 1300 240 720 Balance 1300 240 720 Intake: IV 960 Left Wrist 960 Oral 340 240 720 Other: Voiding Method Toilet Toilet Toilet # Voids 2 3 0 # Bowel Movements 0 General: Alert, Oriented to Person, Oriented to Place, Oriented to Time, Cooperative, No acute distress Lungs: Wheezes Cardiovascular: Regular rate - Results Results: Laboratory Results WBC 8.10 K/ul (4.00-12.00) 03/22/19 05:25 RBC 3.15 M/ul (3.90-5.20) L 03/22/19 05:25 Hgb 9.5 g/dL (11.5-16.0) L 03/22/19 05:25 Hct 28.3 % (34.5-46.5) L 03/22/19 05:25 MCV 90.0 fl (80.0-100.0) 03/22/19 05:25 MCH 30.2 pg (28.0-34.0) 03/22/19 05:25 MCHC 33.7 g/dL (30.0-36.0) 03/22/19 05:25 RDW 15.1 % (11.3-14.3) H 03/22/19 05:25 Plt Count 321 K/mm3 (130-400) 03/22/19 05:25 Neut % (Auto) 85.4 % (39.0-79.0) H 03/22/19 05:25 Lymph % (Auto) 9.6 % (16.0-50.0) L 03/22/19 05:25 [place] % (Auto) 4.1 % (0.0-11.0) 03/22/19 05:25 Eos % (Auto) 0.7 % (0.0-6.8) 03/22/19 05:25 Baso % (Auto) 0.2 % (0.0-1.5) 03/22/19 05:25 Neut # (Auto) 6.9 # k/uL (1.4-7.7) 03/22/19 05:25 Lymph # (Auto) 0.8 # k/uL (0.6-4.0) 03/22/19 05:25 [place] # (Auto) 0.3 # k/uL (0.0-0.9) 03/22/19 05:25 Eos # (Auto) 0.1 # k/uL (0.0-0.6) 03/22/19 05:25 Baso # (Auto) 0.0 # k/uL (0.0-0.5) 03/22/19 05:25 Sodium 137 mmol/L (137-145) 03/21/19 11:15 Potassium 3.5 mmol/L (3.5-5.1) 03/21/19 11:15 Chloride 102 mmol/L (98-107) 03/21/19 11:15 Carbon Dioxide 33 mmol/L (22-30) H 03/21/19 11:15 BUN 18 mg/dL (7-17) H 03/21/19 11:15 Creatinine 0.97 mg/dL (0.52-1.04) 03/21/19 11:15 Estimated Creat Clear 85 03/21/19 11:15 Est GFR ( Amer) > 60 (60-) 03/21/19 11:15 Est GFR (Non-Af Amer) > 60 (60-) 03/21/19 11:15 Glucose 107 mg/dL (74-106) H 03/21/19 11:15 Calcium 9.3 mg/dL (8.4-10.2) 03/21/19 11:15 Total Bilirubin 0.5 mg/dL (0.2-1.3) 03/21/19 11:15 AST 21 U/L (15-46) 03/21/19 11:15 ALT 17 U/L (0-35) 03/21/19 11:15 Alkaline Phosphatase 70 U/L (38-126) 03/21/19 11:15 Troponin I < 0.012 ng/mL (0.012-0.034) L 03/21/19 11:15 Total Protein 7.1 g/dL (6.3-8.2) 03/21/19 11:15 Albumin 3.8 g/dL (3.5-5.0) 03/21/19 11:15 Assessment/Plan - Assessment/Plan (1) HTN (hypertension) Status: Chronic Current Visit: No Qualifiers: Hypertension type: essential hypertension Qualified Code(s): I10 - Essential (primary) hypertension (2) Anxiety Status: Chronic Current Visit: No (3) GERD (gastroesophageal reflux disease) Status: Chronic Current Visit: No (4) Hypoxia Status: Acute Current Visit: Yes (5) COPD with acute exacerbation Status: Acute Current Visit: Yes Plan: Continue to do IV steroid and O2. Finish zithromax. CT shows RUL 2 cm nodule that is "malignant until proven . Patient refuses to have another CT scan as she had one 2-3 years ago "somewhere." [facility] says they had an order several years ago but never did the test. Our records say 2012 was the last one but does mention a 2 cm RUL mass. I am currently working with [facility] to get records. CR is up - will give some IVF
[2019-03-23 09:24] LABS: eGFR (Non-African) 39
[2019-03-23] MEDS: 0.9 % SODIUM CHLORIDE 1,000 ML IV SCH ×2 (10:39→22:42)
[2019-03-23] MEDS: hydrOXYzine HCL 25 MG TABLET PO PRN ×2 (10:46→21:56)
[2019-03-24] MEDS: ACETAMINOPHEN 500 MG TABLET PO PRN ×2 (00:26→23:50)
[2019-03-24] MEDS: diphenhydrAMINE HCL 25 MG TABLET PO PRN ×2 (00:26→23:50)
[2019-03-24] MEDS ORDERED: PANTOPRAZOLE SODIUM INJ. 40 MG VIAL ONE (06:18)
[2019-03-24] MEDS: methylPREDNISolone SOD SUCC 40 MG/ML VIAL IVP SCH ×3 (06:22→21:08)
[2019-03-24] MEDS: IPRATROPIUM/ALBUTEROL SULFATE 3 ML AMPUL.NEB NEB SCH ×4 (06:33→23:59)
[2019-03-24] MEDS: PANTOPRAZOLE SODIUM 40 MG TABLET.DR PO SCH ×2 (06:35→16:49)
[2019-03-24 06:49] LABS: eGFR (Non-African) 39
--- NOTE | 2019-03-24 08:16 | Inpatient Progress Note ---
Subjective - Required Recertification Statement I anticipate X number of days because-include discharge plan: 2 - Review of Systems Subjective: Patient up ambulating in [place] today. SAT drops to 84% off O2 with pulse 120. Once in bed, O2 at 2L reapplied, SAT's go to 99%. Turned down to 1 liter - stayed at 97%. Objective - Exam Vitals and I&O: Vital Signs Temp 97.5 F L 03/24/19 05:41 Pulse 88 03/24/19 05:41 Resp 18 03/24/19 05:41 BP 138/81 03/24/19 05:41 Pulse Ox 97 03/24/19 05:41 Intake & Output 03/23/19 03/23/19 03/24/19 11:59 23:59 11:59 Intake Total 720 1040 560 Output Total 500 500 Balance 720 540 60 Intake: IV 320 320 Left Wrist 320 320 Oral 720 720 240 Output: Urine 500 500 Other: Voiding Method Toilet Toilet Toilet # Voids 0 2 2 # Bowel Movements 0 General: Alert, Oriented to Person, Oriented to Place, Oriented to Time, Cooperative, Mild distress Lungs: Wheezes Cardiovascular: Tachycardia - Results Results: Laboratory Results WBC 10.20 K/ul (4.00-12.00) 03/24/19 06:15 RBC 3.25 M/ul (3.90-5.20) L 03/24/19 06:15 Hgb 9.8 g/dL (11.5-16.0) L 03/24/19 06:15 Hct 29.4 % (34.5-46.5) L 03/24/19 06:15 MCV 90.0 fl (80.0-100.0) 03/24/19 06:15 MCH 30.2 pg (28.0-34.0) 03/24/19 06:15 MCHC 33.4 g/dL (30.0-36.0) 03/24/19 06:15 RDW 14.7 % (11.3-14.3) H 03/24/19 06:15 Plt Count 328 K/mm3 (130-400) 03/24/19 06:15 Neut % (Auto) 85.4 % (39.0-79.0) H 03/22/19 05:25 Lymph % (Auto) 9.6 % (16.0-50.0) L 03/22/19 05:25 [place] % (Auto) 4.1 % (0.0-11.0) 03/22/19 05:25 Eos % (Auto) 0.7 % (0.0-6.8) 03/22/19 05:25 Baso % (Auto) 0.2 % (0.0-1.5) 03/22/19 05:25 Neut # (Auto) 6.9 # k/uL (1.4-7.7) 03/22/19 05:25 Lymph # (Auto) 0.8 # k/uL (0.6-4.0) 03/22/19 05:25 [place] # (Auto) 0.3 # k/uL (0.0-0.9) 03/22/19 05:25 Eos # (Auto) 0.1 # k/uL (0.0-0.6) 03/22/19 05:25 Baso # (Auto) 0.0 # k/uL (0.0-0.5) 03/22/19 05:25 Sodium 135 mmol/L (137-145) L 03/24/19 06:15 Potassium 4.4 mmol/L (3.5-5.1) 03/24/19 06:15 Chloride 106 mmol/L (98-107) 03/24/19 06:15 Carbon Dioxide 28 mmol/L (22-30) 03/24/19 06:15 BUN 38 mg/dL (7-17) H 03/24/19 06:15 Creatinine 1.40 mg/dL (0.52-1.04) H 03/24/19 06:15 Estimated Creat Clear 57 03/24/19 06:15 Est GFR ( Amer) > 60 (60-) 03/24/19 06:15 Est GFR (Non-Af Amer) 39 (60-) L 03/24/19 06:15 Glucose 135 mg/dL (74-106) H 03/24/19 06:15 Calcium 8.2 mg/dL (8.4-10.2) L 03/24/19 06:15 Total Bilirubin 0.5 mg/dL (0.2-1.3) 03/21/19 11:15 AST 21 U/L (15-46) 03/21/19 11:15 ALT 17 U/L (0-35) 03/21/19 11:15 Alkaline Phosphatase 70 U/L (38-126) 03/21/19 11:15 Troponin I < 0.012 ng/mL (0.012-0.034) L 03/21/19 11:15 Total Protein 7.1 g/dL (6.3-8.2) 03/21/19 11:15 Albumin 3.8 g/dL (3.5-5.0) 03/21/19 11:15 Assessment/Plan - Assessment/Plan (1) HTN (hypertension) Status: Chronic Current Visit: No Qualifiers: Hypertension type: essential hypertension Qualified Code(s): I10 - Essential (primary) hypertension (2) Anxiety Status: Chronic Current Visit: No (3) GERD (gastroesophageal reflux disease) Status: Chronic Current Visit: No (4) Hypoxia Status: Acute Current Visit: Yes (5) COPD with acute exacerbation Status: Acute Current Visit: Yes Plan: Patient needs to continue on O2. Continue IV steroids, duonebs, O2. Consider pulmicort. Will plan to transfer to SNF soon.
[2019-03-24] MEDS: CLOPIDOGREL BISULFATE 75 MG TABLET PO SCH (08:34)
[2019-03-24] MEDS: LORATADINE 10 MG TABLET PO SCH (08:34)
[2019-03-24] MEDS: guaiFENesin 600 MG TAB.ER.12H PO SCH ×2 (08:34→21:07)
[2019-03-24] MEDS: hydroCHLOROthiazide 25 MG TABLET PO SCH (08:34)
[2019-03-24] MEDS: ENOXAPARIN SODIUM 40 MG/0.4 ML DISP.SYRIN SQ SCH (08:35)
[2019-03-24] MEDS: AZITHROMYCIN 250 MG TABLET PO SCH (08:35)
[2019-03-24] MEDS: 0.9 % SODIUM CHLORIDE 1,000 ML IV SCH (09:59)
[2019-03-24] MEDS: hydrOXYzine HCL 25 MG TABLET PO PRN ×2 (10:05→21:50)
[2019-03-24] MEDS: oxyCODONE/ACETAMINOPHEN 5/325 TABLET PO PRN (10:05)
[2019-03-24] MEDS ORDERED: FUROSEMIDE 20 MG/2 ML VIAL IVP ONE (18:13)
[2019-03-25] MEDS: methylPREDNISolone SOD SUCC 40 MG/ML VIAL IVP SCH (05:03)
[2019-03-25] MEDS: IPRATROPIUM/ALBUTEROL SULFATE 3 ML AMPUL.NEB NEB SCH (06:34)
[2019-03-25 06:37] LABS: eGFR (Non-African) 39
[2019-03-25] MEDS ORDERED: FUROSEMIDE 40 MG TABLET PO ONE ×2 (08:11→08:37)
[2019-03-25] MEDS ORDERED: predniSONE 10 MG TABLET PO ONE ×3 (08:12→08:40)
--- NOTE | 2019-03-25 08:18 | Discharge Summary ---
Discharge Summary - Discharge [facility] Admission Date: 03/21/19 Discharge Date: 03/25/19 Discharge To: Other (SNF) History of Present Illness: Patient with COPD presented to the ER with SOB today. For the past 5 days she has felt SOB with a cough productive of yellow/green sputum. She had a h/o home O2 use but able to wean off after she quit smoking years ago. In the ER she was found to have RA SAT 84%. She was given duoneb and solumedrol IM and began to feel improvement. She will be admitted Acute. Condition at Discharge: Stable Home Medications: Ambulatory Orders Medication Instructions Recorded Budesonide/Formoterol Fumarate 10.2 gm IH BID 07/02/18 [Symbicort 160-4.5 Mcg Inhaler] Cholecalciferol (Vitamin D3) 1,000 unit PO DAILY av 07/02/18 [Vitamin D3] Omeprazole 40 mg PO BID 07/02/18 Acetaminophen [Tylenol Extra 500 mg PO HS PRN tablet 03/25/19 Strength] Budesonide [Pulmicort] 0.5 mg NEB BID ampul.neb 03/25/19 Enoxaparin Sodium [Lovenox] 40 mg SQ DAILY disp.syrin 03/25/19 Ipratropium/Albuterol Sulfate 3 ml NEB Q6 ampul.neb 03/25/19 [Duoneb] diphenhydrAMINE HCL [Benadryl] 25 mg PO HS PRN tablet 03/25/19 hydrOXYzine HCL [Atarax] 25 mg PO Q8H PRN tablet 03/25/19 Consultations this Visit: None Procedures this Visit: None Allergies/Adverse Reactions: Allergies Allergy/AdvReac Type Severity Reaction Status Date / Time promethazine HCl Allergy Unknown Verified 03/21/19 11:08 [From Phenergan] SEAN Inhibitors Allergy Verified 03/21/19 11:08 amlodipine besylate Allergy Verified 03/21/19 11:08 [From Norvasc] benazepril HCl [From Lotrel] Allergy Verified 03/21/19 11:08 fluticasone propionate Allergy Verified 03/21/19 11:08 [From Advair Diskus] metformin Allergy Verified 03/21/19 11:08 nifedipine [Nifedipine] Allergy Verified 03/21/19 11:08 NSAIDS (Non-Steroidal Allergy Verified 03/21/19 11:08 Anti-Inflamma Quinolones Allergy Verified 03/21/19 11:08 salmeterol xinafoate Allergy Verified 03/21/19 11:08 [From Advair Diskus] Shellfish Allergy Verified 03/21/19 11:08 Sulfa (Sulfonamide Allergy Verified 03/21/19 11:08 Antibiotics) [Sulfa(Sulfonamide Antibiotics)] tramadol Allergy Verified 03/21/19 11:08 Discharge Summary: Patient was admitted with COPD exacerbation. She has severe COPD and had been on home O2 before. She was slow to respond to IV solumedrol 80 mg q8hr with duonebs and O2. Lovenox used for DVT prevention but she refused SCD's. She got very upset with staff, telling us she couldn't take steroids and we should know that. This was NOT on her allergy list nor did she say anything when I told her 3 times on different days we were continuing the IV steroids. She feels she got swelling in her legs as a result. I feel this was due to her hanging them off her bed all day. Regardless, IV steroid stopped and plan to taper off oral steroids as quickly as possible. Lasix given for swelling. Cr remained at 1.3 Hemoglobin slightly low at 9.[address] showed RUL 2 cm nodule - concern for malignancy. She reports she had a biopsy of this in past and it was scarring. We are still working to get old records and will likely get a PET scan as an outpatient. Patient very anxious and cried about the thought of going back on home O2. STill with difficulty walking and desaturations. Plan to move to SNF and work on weaning off O2. Hospital Course: Discharge Dx: COPD exacerbation. COPD. RUL nodule. Disposition - SNF
[2019-03-25 08:22] VITALS: BP 164/96
[2019-03-25] MEDS ORDERED: predniSONE 20 MG TABLET PO ONE (08:37)
[2019-03-25] MEDS: CLOPIDOGREL BISULFATE 75 MG TABLET PO SCH (08:49)
[2019-03-25] MEDS: guaiFENesin 600 MG TAB.ER.12H PO SCH (08:49)
[2019-03-25] MEDS ORDERED: BUDESONIDE 0.5MG/2ML AMPUL.NEB NEB ONE (08:49)
[2019-03-25] MEDS: LORATADINE 10 MG TABLET PO SCH (08:49)
[2019-03-25] MEDS: hydroCHLOROthiazide 25 MG TABLET PO SCH (08:49)
[2019-03-25] MEDS: PANTOPRAZOLE SODIUM 40 MG TABLET.DR PO SCH (08:50)
[2019-03-25] MEDS: ENOXAPARIN SODIUM 40 MG/0.4 ML DISP.SYRIN SQ SCH (08:53)
[2019-03-25] MEDS ORDERED: BUDESONIDE 0.5MG/2ML AMPUL.NEB NEB SCH (09:00)
== END 2019-03-25 08:28 | DRG 190 ==
LOC: ED 10:52 → SOUTH 13:10
PROVIDERS: ADMIT Family Medicine; ATTEND Family Medicine
DX: J44.1 Chronic obstructive pulmonary disease with (acute) exacerbation (principal); J96.01 Acute respiratory failure with hypoxia; I10 Essential (primary) hypertension; K21.9 Gastro-esophageal reflux disease without esophagitis; F41.9 Anxiety disorder, unspecified; M19.90 Unspecified osteoarthritis, unspecified site; D50.9 Iron deficiency anemia, unspecified; R60.9 Edema, unspecified; R91.1 Solitary pulmonary nodule; M79.7 Fibromyalgia; Z98.51 Tubal ligation status; Z87.891 Personal history of nicotine dependence; Z80.0 Family history of malignant neoplasm of digestive organs; Z88.2 Allergy status to sulfonamides; Z88.8 Allergy status to other drugs, medicaments and biological substances; Z88.6 Allergy status to analgesic agent; Z88.5 Allergy status to narcotic agent; Z91.013 Allergy to seafood; Z53.20 Procedure and treatment not carried out because of patient's decision for unspecified reasons; Z79.899 Other long term (current) drug therapy; Z79.51 Long term (current) use of inhaled steroids
CPT/HCPCS: 71046; 71250; 80048; 80053; 84484; 85025; 85027; 94640; 94760; 99221; J1650; J1940; J2920; J2930; J7626; A9270-GY; J1030; J7030; J7512; Q0163; S1016